=== PATIENT | female | born 1950 | race American Indian/Alaskan Native ===

== ENCOUNTER 2017-03-21 07:25 | Outpatient (CLI) | payer MEDICARE ==
--- NOTE | 2017-03-21 08:42 | Mammography Report ---
BILATERAL DIGITAL SCREENING MAMMOGRAM with CAD: 03/21/17 07:25:00 CLINICAL: Routine screening. COMPARISON:09/19/14 FINDINGS: The breasts are almost entirely fatty. No mass, architectural distortion or suspicious calcifications. IMPRESSION: No mammographic evidence of malignancy. BI-RADS CATEGORY: 1 - - Negative RECOMMENDATION: Routine mammographic screening in one year. COMMENT: Patient follow-up letters are generated by our [employer] application.
== END 2017-03-21 07:26 | disposition home or self-care (01) ==
LOC: MAMMO 07:25
PROVIDERS: ATTEND Internal Medicine
DX: Z12.31 Encounter for screening mammogram for malignant neoplasm of breast (principal)
CPT/HCPCS: 77067; G0202

== ENCOUNTER 2017-04-11 12:50 | Emergency (ER) | payer MEDICARE ==
--- NOTE | 2017-04-11 13:10 | Emergency Department Report ---
Stated Complaint: SOB Time Seen by Provider: 04/11/17 13:07 - HPI History of Present Illness: PT states she woke up SOB. PT states she has chronic neck and back pain - ROS Review of Systems: + cough ( "a little bit") - fever - cp - Exam Physical Exam: PT looks well, no acute resp distress lungs diminished annabel MSE screening note: Focused history and physical exam performed. Due to findings the following was ordered: ekg, labs, xr ED Disposition for MSE Condition: Stable
[2017-04-11 14:05] LABS: Basophils % (Auto) 0.5 % (0.0-1.8); Hemoglobin 12.4 gm/dl (10.1-14.3); Mean Corpuscular HGB Conc 33 % (30-34); Mean Corpuscular Hemoglobin 30 pg (28-32); Mean Corpuscular Volume 91 fl (79-97); Platelet Count 185 K/mm3 (140-440); Red Blood Count 4.19 M/mm3 (3.65-5.03); Red Cell Distribution Width 14.8 % (13.2-15.2); White Blood Count 6.2 K/mm3 (4.5-11.0)
[2017-04-11 14:13] LABS: Alanine Aminotransferase 13 units/L (7-56); Albumin 3.5 g/dL (3.9-5); Albumin/Globulin Ratio 0.8 %; Alkaline Phosphatase 99 units/L (35-129); Anion Gap 17 mmol/L; BUN/Creatinine Ratio 20; Blood Urea Nitrogen 20 mg/dL (7-17); Calcium 9.4 mg/dL (8.4-10.2); Carbon Dioxide 25 mmol/L (22-30); Chloride 99.7 mmol/L (98-107); Glucose 86 mg/dL (65-100); INR 1.03 (0.87-1.13); Potassium 4.5 mmol/L (3.6-5.0); Sodium 137 mmol/L (137-145); Total Protein 7.8 g/dL (6.3-8.2)
[2017-04-11 14:14] LABS: Partial Thromboplastin Time 33.3 Sec. (24.2-36.6)
--- NOTE | 2017-04-11 14:32 | XRay Report ---
PA and lateral chest: Dyspnea. The lungs are clear. The heart is normal in size and there is no vascular congestion. There is mild spondylosis of the thoracic spine. There is a surgical staple over the left humerus head. No recent prior studies for comparison. Impression: No acute findings or cardiopulmonary pathology appreciated.
--- NOTE | 2017-04-11 22:57 | Emergency Department Report ---
ED Shortness of Breath HPI - General Chief Complaint: Upper Respiratory Infection Stated Complaint: SOB Time Seen by Provider: 04/11/17 13:07 Source: patient Mode of arrival: Ambulatory Limitations: No Limitations - History of Present Illness Initial Comments: Patient is a 66 years old female coming today with shortness of breath stated that it started today and it happened during rest. She stated that she has been having some cough denied any fever no chest pain. Denied any nausea vomiting or diarrhea no abdominal pain. MD Complaint: shortness of breath, cough -: Gradual, This morning Pain Scale: 5 Associated Symptoms: cough - Related Data Allergies Allergy/AdvReac Type Severity Reaction Status Date / Time Penicillins Allergy Unknown Verified 04/12/17 00:12 ED Review of Systems ROS: Stated complaint: SOB Other details as noted in HPI Comment: All other systems reviewed and negative Constitutional: denies: chills, fever Respiratory: cough, shortness of breath. denies: SOB with exertion Cardiovascular: denies: chest pain, palpitations Gastrointestinal: denies: abdominal pain, nausea, vomiting, diarrhea Genitourinary: denies: urgency, dysuria, frequency Musculoskeletal: denies: back pain Skin: denies: rash Neurological: denies: headache, weakness ED Past Medical Hx - Past Medical History Previous Medical History?: Yes Hx Hypertension: Yes - Surgical History Past Surgical History?: Yes Hx Cholecystectomy: Yes Additional Surgical History: lap band, rotator cuff x 2, knee replacement - Social History Smoking Status: Never Smoker Substance Use Type: None ED Physical Exam - General Limitations: No Limitations General appearance: alert, in no apparent distress - Head Head exam: Present: normocephalic, normal inspection - Eye Eye exam: Present: normal appearance, PERRL, EOMI - ENT ENT exam: Present: normal exam - Neck Neck exam: Present: normal inspection - Respiratory Respiratory exam: Present: normal lung sounds bilaterally. Absent: respiratory distress, wheezes, rales, rhonchi, stridor, decreased breath sounds - Cardiovascular Cardiovascular Exam: Present: regular rate, normal rhythm, normal heart sounds - GI/Abdominal GI/Abdominal exam: Present: soft, normal bowel sounds. Absent: distended, tenderness, guarding - Extremities Exam Extremities exam: Present: normal inspection - Back Exam Back exam: Present: normal inspection. Absent: CVA tenderness (R), CVA tenderness (L) - Neurological Exam Neurological exam: Present: alert, oriented X3, CN II-XII intact, normal gait - Skin Skin exam: Present: warm, normal color. Absent: rash ED Course Vital Signs 04/11/17 04/11/17 04/11/17 13:10 21:11 23:03 Temperature 97.8 F 97.7 F Pulse Rate 66 71 65 Respiratory 18 18 17 Rate Blood Pressure 113/61 Blood Pressure 167/63 165/69 [Right] O2 Sat by Pulse 99 100 99 Oximetry 04/11/17 23:29 Temperature Pulse Rate 78 Respiratory 16 Rate Blood Pressure Blood Pressure 113/68 [Right] O2 Sat by Pulse Oximetry - Reevaluation(s) Reevaluation #1: 04/12/17 01:08 Patient stated that she is feeling much better, no shortness of breath. Patient was leaving comfortably when I walked into the room in no acute distress. ED Medical Decision Making - Lab Data Result diagrams: 04/11/17 13:37 04/11/17 13:37 - EKG Data -: EKG Interpreted by [place] EKG shows normal: sinus rhythm Rate: normal - EKG Data Interpretation: no acute changes, nonspecific ST-T wave stacia - Radiology Data Radiology results: report reviewed CT of the chest no pulmonary embolism moderate atelectasis no acute finding. - Medical Decision Making Patient stated that she is feeling better. EKG sinus rhythm with no evidence of ST elevation or depression, troponin 3 is negative. CTA chest no acute PE. Will discharge patient to follow up with her primary care physician. Critical care attestation.: If time is entered above; I have spent that time in minutes in the direct care of this critically ill patient, excluding procedure time. ED Disposition Clinical Impression: Shortness of breath Disposition: DC-01 TO HOME OR SELFCARE Is pt being admited?: No Condition: Stable Instructions: Dyspnea (ED) Referrals: PRIMARY CARE, [Primary Care Provider] - 3-5 Days
[2017-04-11] MEDS ORDERED: NORCO 5/325 PO ONE (23:28)
[2017-04-11] MEDS ORDERED: NACL ONE (23:42)
--- NOTE | 2017-04-12 01:05 | Cat Scan Report ---
FINAL REPORT EXAM: CT ANGIO CHEST HISTORY: CHEST PAIN WITH SYNCOPE COMPARISON: None available. TECHNIQUE: Contiguous axial images were obtained. Administration of IV contrast given per institution protocol. Images submitted for interpretation. Additional sagittal and coronal reformatted images were obtained. Max intensity projection images. 100 cc Omnipaque 350. FINDINGS: Heart borderline enlarged. Thoracic aorta normal in caliber. No acute dissection or rupture. Ascending thoracic aorta measures 3.2 centimeters in diameter. No pulmonary embolus. No pathologically enlarged intrathoracic or axillary lymph nodes. Mild linear and subsegmental atelectasis at the lung bases. Focal scarring at the left lung apex. No large airspace consolidation or effusion. Tracheobronchial tree is patent. Gallbladder surgically absent visualize common bile duct measures up to 8 millimeters which may relate to patient's post cholecystectomy state. Lap band apparatus is in place. Lap band ring is at the junction between the distal esophagus and proximal stomach in expected position. Mild degenerative changes of the thoracic spine. IMPRESSION: No pulmonary embolus. Focal scarring at the left lung apex and mild atelectasis or scarring at the lung bases. No large consolidation or effusion to suggest active infection. Mild prominence of the common bile duct which may relate to patient's post cholecystectomy state.
[2017-04-12 01:41] VITALS: BP 111/65
== END 2017-04-12 01:43 | disposition home or self-care (01) ==
LOC: ED 12:50
DX: R06.02 Shortness of breath (principal); I10 Essential (primary) hypertension; Z88.0 Allergy status to penicillin
CPT/HCPCS: 36415; 71020; 71275; 80053; 83880; 84484; 85025; 85379; 85610; 85730; 93005; 93010; 99285; Q9967

== ENCOUNTER → 2017-07-25 | Outpatient (CLI) | payer MEDICARE | LOC: SLR 11:00 | PROVIDERS: ATTEND Specialist | DX: G47.30 Sleep apnea, unspecified (principal); I10 Essential (primary) hypertension | CPT/HCPCS: G0399 ==

== ENCOUNTER 2021-08-25 09:11 | Outpatient (CLI) | payer OTHER ==
--- NOTE | 2021-08-25 14:02 | Nuclear Medicine Report ---
THREE PHASE BONE SCAN HISTORY: Right knee pain and swelling, history of right knee replacement in 2012 and left knee replac ement in 2006. Evaluate for osteomyelitis. COMPARISON: No prior exam or report is available for direct comparison. TECHNIQUE: Following administration of Tc-99m-MDP, sequential immediate dynamic and early static imag es of the bilateral knees were acquired followed by anterior and posterior delayed images several marielle rs later. RADIOPHARMACEUTICAL: 26.4 mCi Tc-99m-MDP. FINDINGS: FLOW AND BLOOD POOL IMAGING: There is mild increased radiotracer uptake in the knees bilaterally in the region of the femoral comp onents of the bilateral knee replacements. There is slightly more radiotracer accumulation in the rig ht knee. DELAYED IMAGING: There is increased periprosthetic uptake in most knee but is most pronounced surrounding the femoral component of the right knee replacement. Additional Findings: None. IMPRESSION: There is increased uptake surrounding both knee prostheses although it is most pronounced at the femo ral component of the right knee replacement. This could represent infection or loosening. Please janina elate with the patient's clinical presentation and laboratory values. Signer Name: Darien Carnes Jr, MD Signed: 08/25/2021 1:57 PM Workstation Name: [id number]
== END 2021-08-25 09:12 | disposition home or self-care (01) ==
LOC: NM 09:11
PROVIDERS: ATTEND Orthopaedic Surgery
DX: Z96.651 Presence of right artificial knee joint (principal)
CPT/HCPCS: 78315; A9503